=== PATIENT | male | born 1975 | race Caucasian/White ===

== ENCOUNTER 2019-05-23 11:43 | Inpatient (IN) ==
[2019-05-23] MEDS ORDERED: ONDANSETRON INJ 2 MG/ML 2 ML VIAL IV STA (12:46)
[2019-05-23] MEDS ORDERED: KETOROLAC TROMETHAMINE 15 MG/ML VIAL IV STA (12:46)
[2019-05-23] MEDS ORDERED: MoRPHine SULFATE 4 MG/ML 1 ML CARP\\VIAL IV STA (12:46)
[2019-05-23] MEDS ORDERED: SODIUM CHLORIDE 0.9% 500 ML IV SCH (13:00)
[2019-05-23 13:02] LABS: Basophils # (auto) 0.04 K/uL (0-0.2); Basophils % (auto) 0.4 %; Eosinophils # (auto) 0.23 K/uL (0-0.5); Eosinophils % (auto) 2.4 %; Hematocrit (blood only) 46.5 % (42-52); Hemoglobin 16.1 g/dL (14.0-18.0); Immature Granulocytes # (auto) 0.03 K/uL (0.00-0.02); Immature Granulocytes % (auto) 0.3 %; Lymphocytes # (auto) 1.68 K/uL (1.2-3.4); Lymphocytes % (auto) 17.6 %; Mean Corpuscular Hemoglobin 28.8 pg (25-34); Mean Corpuscular Hgb Conc 34.6 g/dL (32-36); Monocytes # (auto) 0.67 K/uL (0.11-0.59); Neutrophils # (auto) 6.91 K/uL (1.4-6.5); Neutrophils % (auto) 72.3 %; Platelet Count 318 K/uL (130-400); RDW Standard Deviation 39.3 fL (36.4-46.3); White Blood Count 9.56 K/uL (4.8-10.8)
--- NOTE | 2019-05-23 13:02 | XRay Report ---
XR chest 1V portable CLINICAL HISTORY: left chest pain pain COMPARISON STUDY: No previous studies for comparison. FINDINGS: The bones soft tissues and hemidiaphragms are normal. The cardiomediastinal silhouette is n ormal. The lungs are clear. The pulmonary vasculature is normal. IMPRESSION: Negative chest. The above report was generated using voice recognition software. It may contain grammatical, syntax or spelling errors. Electronically signed by: Mateusz Phillips M.D. 05/23/2019 1:00 PM
[2019-05-23 13:09] LABS: Albumin Level 4.2 gm/dl (3.4-5.0); BUN Creatinine Ratio 10.8 (10-20); Calcium 9.9 mg/dl (8.5-10.1); Est GFR (African American) 63.7; Potassium 3.8 mmol/L (3.5-5.1)
[2019-05-23] MEDS ORDERED: HYDROmorphone INJ 0.5 MG/0.5 ML SYR IV STA (13:10)
[2019-05-23 13:12] LABS: Albumin Globulin Ratio 1.2 (0.9-2); Bilirubin,Total 0.8 mg/dl (0.2-1); Globulin 3.4 gm/dl (2.5-4.0); Total Protein 7.6 gm/dl (6.4-8.2)
--- NOTE | 2019-05-23 13:25 | CT Scan Report ---
CT SCAN OF THE ABDOMEN AND PELVIS WITHOUT CONTRAST CLINICAL HISTORY: left sided pain COMPARISON STUDY: No previous studies for comparison. TECHNIQUE: CT scan of the abdomen and pelvis was performed from the lung bases to the proximal femurs . Images are reviewed in the axial, sagittal, and coronal planes. IV contrast was not administered fo r this examination. A dose lowering technique was utilized adhering to the principles of ALARA. CT DOSE: 589.85 mGycm FINDINGS: Lower chest: There is a 2.5 mm subpleural solid pulmonary nodule within the lingula. This is of doubt ful acute clinical significance. There are no pleural effusions. Liver: The unenhanced liver is normal in size, contour, and attenuation. There is no intrahepatic lyly iary ductal dilatation. Gallbladder: Unremarkable. Spleen: Normal in size and attenuation. Pancreas: Unremarkable. Adrenal glands: Unremarkable. Kidneys: There are 2 tangential lower pole right renal calculi measuring 9 mm in aggregate. There are 3 left renal calculi, the largest of which measures 5 mm. There is left-sided hydronephrosis and hyd roureter. There is an obstructing 5.5 mm proximal left ureteral calculus at the superior L3 level. No right ureteral or bladder calculi are visualized. Bowel: There are no transition zones indicate bowel obstruction. There is no evidence of acute append icitis. There is no evidence of acute diverticulitis. Peritoneum: There is no intraperitoneal free air or abdominal ascites. Vasculature: The abdominal aorta is normal in course and caliber. Adenopathy: There are prominent right ileocolic lymph nodes, statistically reactive. Pelvic viscera: The bladder, and pelvic viscera are unremarkable. Skeletal structures: No destructive osseous lesions are seen. IMPRESSION: 1. Bilateral nephrolithiasis 2. Obstructing 5.5 mm proximal left ureteral calculus the superior L3 level 3. No evidence of bowel obstruction. No evidence of free air 4. Prominent right ileocolic lymph nodes statistically reactive Electronically signed by: Damien Pradhan M.D. 05/23/2019 1:24 PM
[2019-05-23] MEDS ORDERED: TAMSULOSIN HCL 0.4 MG CAP PO ONE (13:33)
--- NOTE | 2019-05-23 14:17 | History & Physical Report ---
Date of Service May 23, 2019 Assessment & Plan (1) Renal colic: (2) Hydronephrosis: Pt is 43 y/o M without significant past medical history presented with sudden onset constant pain to left flank and left lower quadrant. Nausea and vomiting today. Denies fever/chills In ER pt afebrile, P: 85, R:24, BP: 179/105, 99% on RA. No leukocytosis. BUN: 16, Cr: 1.5, GFR: 55 CT ABD/PELVIS: Left-sided hydronephrosis and hydroureter. There is an obstructing 5.5 mm proximal left ureteral calculus -In ER given 1L NSS, Morphine 4mg, Dilaudid 0.5mg, Toradol 15mg, Zofran 4mg -UA pending -Urine culture -Strain urine -Flomax -IVF -Zofran prn nausea -Morphine, oxycodone prn pain -Urology consult -CBC, BMP in am (3) Renal insufficiency: BUN: 16, Cr: 1.5, GFR: 55 Unsure of pt's baseline. May be secondary to obstructing stone -Monitor renal functions -Will avoid further NSAIDs at this time and avoid other nephrotoxic agents when possible (4) Elevated blood pressure reading: In ER BP: 179/105, 152/105 No history diagnosed HTN in past. Pt does not follow with PCP BP may be elevated secondary to pain -Monitor BP -May need to consider adding BP agent DVT Prophylaxis -Low risk, Ambulate Pt does not follow with PCP for routine care. Pt from [place]. Pt was seen and care coordinated with Dr Fischer. See addendum History of Present Illness Chief Complaint: Left abdominal pain Primary Care Provider: NO PCP Pt is 43 y/o M without significant past medical history presented to ER for Left abdominal pain started today. Describes pain as sudden onset constant pain to left flank and left lower quadrant. Nausea and vomiting x 6 episodes today. No prior treatment. Pt states approx 5 days ago had slight twinge of pain to left abdomen that resolved. Denies history kidney stones, denies abdominal surgical history. Is from [place] and is travelling through area to go to [place]. Denies fever/chills, diaphoresis, hematemesis, diarrhea, constipation, melena, hematochezia, RAMACHANDRAN, dizziness, syncope, vision changes, neck pain, CP, SOB, orthopnea, palpitations, cough, sore throat, choking, otalgia, rhinorrhea, paresthesias, weakness, extremity weakness, extremity edema, rashes, dysuria, hematuria, urinary frequency, urinary retention. Allergies Allergy/AdvReac Type Severity Reaction Status Date / Time [place] nut Allergy Severe Anaphylaxis Unverified 05/23/19 13:50 macadamia nut oil Allergy Severe Anaphylaxis Unverified 05/23/19 13:50 Home Medications Home Medications Medication Instructions Recorded Confirmed Type No Known Home Medications 05/23/19 05/23/19 History Past Med/Surg History Medical History No pertinent past medical history Surgical History No pertinent past surgical history Family History Father Coronary heart disease Social History Preferred Language: [place]an Communication Ability: Effective Corporate Paralegal Required: No Beliefs That Will Affect Care: None Current Living Situation: Significant Other Other Information That Helps Us Care for You: No Feels Safe at Home: Yes Safety Concerns: Feels Safe At This Time Smoking Status: Never smoker Hx Alcohol Use: Yes Alcohol Intake Frequency: Holidays/Special Occasions Hx Substance Use: No Review of Systems Review of Systems: All systems reviewed & are unremarkable except as noted in HPI & below Physical Exam Physical Exam: General: + distress secondary to flank pain, WDWN Head: normocephalic, atraumatic Eyes: PERRL, EOM's intact, conjunctiva non-injected, anicteric ENT: normal inspection external ears, nose, mucous membranes moist Neck: supple, trachea midline Lungs: clear, no respiratory distress, no wheezing/rhonchi/rales CV: RRR, no murmur, no pretibial edema Abd: normal BS, soft, non-tender to palpation at this time, No CVA tenderness to percussion Ext: no cyanosis, no calf tenderness Neuro: A&O x 3, no focal deficits noted, anxious Skin: warm, dry Results & Data Vital Signs (Past 12 Hours) Vital Signs Temp Pulse Pulse Resp BP BP Pulse Ox 05/23/19 14:11 83 20 152/105 H 98 05/23/19 13:01 98 05/23/19 11:48 36.8 C 85 24 179/105 H 99 Laboratory Results Short CBC 05/23/19 05/23/19 Range/Units 12:05 12:05 WBC 9.56 (4.8-10.8) K/uL Hgb 16.1 (14.0-18.0) g/dL Hct 46.5 (42-52) % Plt Count 318 (130-400) K/uL Creatinine 1.51 H (0.6-1.4) mg/dl BMP 05/23/19 12:05 Sodium 140 Potassium 3.8 Chloride 108 H Carbon Dioxide 24 BUN 16 Creatinine 1.51 H Glucose 120 H Calcium 9.9 Liver Function 05/23/19 Range/Units 12:05 Total Bilirubin 0.8 (0.2-1) mg/dl AST 28 (15-37) U/L ALT 45 (12-78) U/L Alkaline Phosphatase 80 (45-117) U/L Albumin 4.2 (3.4-5.0) gm/dl Diagnostic Findings CT ABD/PELVIS: IMPRESSION: 1. Bilateral nephrolithiasis 2. Obstructing 5.5 mm proximal left ureteral calculus the superior L3 level 3. No evidence of bowel obstruction. No evidence of free air 4. Prominent right ileocolic lymph nodes statistically reactive CXR: IMPRESSION: Negative chest. Supervising Physician Co-Signing Physician Notes I have seen and examined the patient with physician broker assistant and would like to comment that This is a 43 year old Male traveling from [place] to [place] with abdominal pain, primarily of left side, for 6 days and found to have Bilateral nephrolithiasis with Obstructing 5.5 mm proximal left ureteral calculus the superior L3 level with left-sided hydronephrosis and hydroureter. Likely patient has been having obstructing kidney stones for multiple days from renal colic given recurrent pain no reported history of hypertension and elevated blood pressures likely because of pain monitor creatine, may be renal insufficiency from chronic kidney disease versus acute kidney injury Will give IV fluids and tamsulosin and prn pain medications and prn anti-emetics obtain urology consult of note, patient's family member () who patient has been traveling with on this road trip is in wheelchair and and has disability and difficulties with commode transfers. 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 Heart: regular rate and rhythm Abdomen: no acute pain on palpation, positive bowel sounds, soft Back: no costovertebral tenderness Extremities: no edema My colleague Dr. Christine will be following the patient as hospitalist starting on 05/24/19 (1) Hydronephrosis Hydronephrosis type: unspecified Qualified Code(s): N13.30 - Unspecified hydronephrosis
[2019-05-23 14:34] LABS: Appearance Urine Clear (Clear); Bacteria Urine Automated Negative (Negative); Bilirubin Urine Negative (Negative); Blood Urine 2+ (Negative); Color Urine Dark Yellow; Glucose Urine UA Negative (Negative); Ketones Urine Trace (Negative); Leukocyte Esterase Urine Negative (Negative); Nitrite Urine Negative (Negative); Protein Urine Trace (Negative); Specific Gravity Urine 1.023 (1.000-1.030); Urobilinogen Urine Negative (Negative)
[2019-05-23] MEDS ORDERED: KETOROLAC TROMETHAMINE 15 MG/ML VIAL IV PRN (15:55)
[2019-05-23] MEDS ORDERED: POLYETHYLENE (MIRALAX) 17 GM PACK PO PRN (15:55)
[2019-05-23] MEDS ORDERED: OXYCODONE HCL IR 5 MG TAB (IMMEDIATE RELEASE) PO PRN (15:55)
[2019-05-23] MEDS ORDERED: MoRPHine SULFATE 4 MG/ML 1 ML CARP\\VIAL IV PRN (15:55)
[2019-05-23] MEDS ORDERED: ACETAMINOPHEN 325 MG TAB PO PRN (15:55)
[2019-05-23] MEDS ORDERED: ONDANSETRON INJ 2 MG/ML 2 ML VIAL IV PRN (15:55)
[2019-05-23] MEDS: SODIUM CHLORIDE 0.9% 1000ML 1,000 ML IV SCH ×2 (16:04→23:51)
--- NOTE | 2019-05-23 16:22 | XRay Report ---
XR KUB/Abdomen 1 view CLINICAL HISTORY: left ureteral stone visibility COMPARISON STUDY: CT abdomen and pelvis same date FINDINGS: Bilateral nephrocalcinosis unchanged in the prior CT study. 5 mm mid left ureteral calculus at approximately L3 level. This is unchanged. Several pelvic vascular calcifications. IMPRESSION: 1. Unchanged 5 mm proximal to mid left ureteral calculus. 2. Unchanged bilateral nephrocalcinosis. The above report was generated using voice recognition software. It may contain grammatical, syntax or spelling errors. Electronically signed by: Mateusz Phillips M.D. 05/23/2019 4:20 PM
[2019-05-23 16:29] LABS: Partial Thromboplastin Ratio 0.8; Partial Thromboplastin Time 21.8 Seconds (21.0-31.0); Prothrombin Time 10.5 Seconds (9.0-12.0)
--- NOTE | 2019-05-23 18:11 | Emergency Department Note ---
Entered by Bassem White acting as a scribe for History of Present Illness General Chief complaint: Abdominal Pain Stated complaint: STOMACH PAIN Time Seen by Provider: 05/23/19 12:42 Source: patient History of Present Illness Provider complaint: abdominal pain Onset (ago): hour(s) 2 Location: abdomen and left Radiation: non-radiation Pain Consistency: + constant Maximum Pain Intensity: 10 Associated symptoms: + denies other symptoms and + nausea/vomiting The patient is a 43 y/o male who presents to the emergency department for evaluation of constant abdominal pain in the left lower quadrant that began two hours ago. The patient states that it started two hours ago very suddenly but notes that he had a similar episode a week ago that resolved itself. The notes that they were at a hotel eating breakfast when the pain began. He reports he is vomiting as well. The patient denies groin pain and testicular pain, di arrhea, and any other symptoms. Home Medications Home Medications Medication Instructions Recorded Confirmed Type ondansetron HCl [Zofran] 4 mg PO Q6H PRN #10 tab 05/24/19 Rx oxycodone 5 mg PO Q6H PRN #10 tab 05/24/19 Rx tamsulosin 0.4 mg PO HS #30 cap 05/24/19 Rx Allergies Allergy/AdvReac Type Severity Reaction Status Date / Time [place] nut Allergy Severe Anaphylaxis Unverified 05/23/19 13:50 macadamia nut oil Allergy Severe Anaphylaxis Unverified 05/23/19 13:50 Past Med/Surg History Medical History No pertinent past medical history Surgical History No pertinent past surgical history Family History Father Coronary heart disease Social History Preferred Language: Israeli Communication Ability: Effective Stunt Driver Required: No Beliefs That Will Affect Care: None Current Living Situation: Significant Other Other Information That Helps Us Care for You: No Feels Safe at Home: Yes Safety Concerns: Feels Safe At This Time Smoking Status: Never smoker Hx Alcohol Use: Yes Alcohol Intake Frequency: Holidays/Special Occasions Hx Substance Use: No Review of Systems See HPI for pertinent positives & negatives. and A total of 10 systems reviewed and were otherwise negative Physical Exam Vital Signs Vital Signs - 24 hr 05/23/19 14:11 Pulse Rate [Apical] 83 Respiratory Rate 20 Blood Pressure [Right Arm] 152/105 H Blood Pressure Mean [Right Arm] 120 Pulse Oximetry 98 GENERAL: Patient is in significant distress from pain. HEENT: No acute trauma, normocephalic atraumatic, mucous membranes moist, no nasal congestion, no scleral icterus. NECK: No stridor, no adenopathy, no meningismus, trachea is midline. LUNGS: Clear to auscultation bilaterally, no wheeze, no rhonchi, breath sounds equal. HEART: Without murmurs gallops or rubs, regular rate and rhythm. ABDOMEN: Soft, moderately tender along the whole left side, bowel sounds positive, no hernias, no peritonitis. BACK: no flank discomfort to percussion. EXTREMITIES: No cyanosis or edema, full range of motion of all the joints without pain or difficulty, no signs for acute trauma. NEUROLOGIC: Oriented x 3, no acute motor or sensory deficits, no focal weakness. SKIN: No rash, no jaundice, no diaphoresis. Course 1244: Past medical records reviewed. The patient was evaluated in room C04. A complete history and physical exam was performed. 1332: I updated the patient on his results and discussed the treatment plan. 1342: I spoke with Viridiana Cordoba. She will evaluate for further management. Administered Medications Discontinued Medications Hydromorphone HCl (Dilaudid) 0.5 mg IV NOW [facility] Stop: 05/23/19 13:11 Last Admin: 05/23/19 13:21 Dose: 0.5 mg Documented by: [id number] Sodium Chloride (Nss) 500 mls @ 999 mls/hr IV .Q31M [facility] Stop: 05/23/19 13:30 Last Infusion: 05/23/19 14:12 Dose: 0 mls/hr Documented by: [id number] Admin: 05/23/19 12:52 Dose: 999 mls/hr Documented by: [id number] Sodium Chloride (Nss 1000ml) 1,000 mls @ 150 mls/hr IV .Q6H40M [facility] Stop: 05/24/19 14:00 Last Infusion: 05/24/19 08:20 Dose: 150 mls/hr Documented by: [id number] Admin: 05/24/19 07:25 Dose: 125 mls/hr Documented by: [id number] Infusion: 05/24/19 07:25 Dose: 125 mls/hr Documented by: [id number] Admin: 05/23/19 23:51 Dose: 125 mls/hr Documented by: [id number] Infusion: 05/23/19 23:51 Dose: 125 mls/hr Documented by: [id number] Admin: 05/23/19 16:04 Dose: 125 mls/hr Documented by: [id number] Ketorolac Tromethamine (Toradol) 15 mg IV NOW STA Stop: 05/23/19 12:47 Last Admin: 05/23/19 12:52 Dose: 15 mg Documented by: [id number] Morphine Sulfate (Morphine Sulfate) 4 mg IV NOW STA Stop: 05/23/19 12:47 Last Admin: 05/23/19 12:52 Dose: 4 mg Documented by: [id number] Ondansetron HCl (Zofran) 4 mg IV NOW STA Stop: 05/23/19 12:47 Last Admin: 05/23/19 12:52 Dose: 4 mg Documented by: [id number] Tamsulosin HCl (Flomax) 0.4 mg PO NOW ONE Stop: 05/23/19 13:34 Last Admin: 05/23/19 14:05 Dose: 0.4 mg Documented by: [id number] Tamsulosin HCl (Flomax) 0.4 mg PO HS [facility] Stop: 06/22/19 20:59 Last Admin: 05/23/19 20:06 Dose: 0.4 mg Documented by: [id number] Medical Decision Making Differential Diagnosis Differential diagnosis: renal colic, bowel obstruction, bowel rupture, hernia, pancreatitis, diverticulitis, UTI, dehydration, renal failure. Medical Records Attestation: I reviewed the patient's medical records. Home Medications Current Medication List: was personally reviewed by me Laboratory Data Attestation: I reviewed the patient's lab results. Result diagrams: 05/24/19 04:57 05/24/19 04:57 Lab Results 05/23/19 05/23/19 05/23/19 Range/Units 12:05 12:05 12:05 WBC 9.56 (4.8-10.8) K/uL RBC 5.60 (4.7-6.1) M/uL Hgb 16.1 (14.0-18.0) g/dL Hct 46.5 (42-52) % MCV 83.0 (80-100) fL MCH 28.8 (25-34) pg MCHC 34.6 (32-36) g/dL RDW Std Deviation 39.3 (36.4-46.3) fL RDW Coeff of Samantha 13.0 (11.5-14.5) % Plt Count 318 (130-400) K/uL MPV 10.0 (7.4-10.4) fL Immature Gran % (Auto) 0.3 % Neut % (Auto) 72.3 % Lymph % (Auto) 17.6 % [place] % (Auto) 7.0 % Eos % (Auto) 2.4 % Baso % (Auto) 0.4 % Immature Gran # (Auto) 0.03 H (0.00-0.02) K/uL Neut # (Auto) 6.91 H (1.4-6.5) K/uL Lymph # (Auto) 1.68 (1.2-3.4) K/uL [place] # (Auto) 0.67 H (0.11-0.59) K/uL Eos # (Auto) 0.23 (0-0.5) K/uL Baso # (Auto) 0.04 (0-0.2) K/uL PT 10.5 (9.0-12.0) Seconds INR 1.0 (0.9-1.1) APTT 21.8 (21.0-31.0) Seconds PTT Ratio 0.8 Sodium 140 (136-145) mmol/L Potassium 3.8 (3.5-5.1) mmol/L Chloride 108 H (98-107) mmol/L Carbon Dioxide 24 (21-32) mmol/L Anion Gap 8.0 (3-11) BUN 16 (7-18) mg/dl Creatinine 1.51 H (0.6-1.4) mg/dl Est Cr Clr Drug Dosing 67.0 ml/min Est GFR ( Amer) 63.7 Est GFR (Non-Af Amer) 55.0 BUN/Creatinine Ratio 10.8 (10-20) Glucose 120 H (70-99) mg/dl Calcium 9.9 (8.5-10.1) mg/dl Total Bilirubin 0.8 (0.2-1) mg/dl AST 28 (15-37) U/L ALT 45 (12-78) U/L Alkaline Phosphatase 80 (45-117) U/L Total Protein 7.6 (6.4-8.2) gm/dl Albumin 4.2 (3.4-5.0) gm/dl Globulin 3.4 (2.5-4.0) gm/dl Albumin/Globulin Ratio 1.2 (0.9-2) Lipase 121 (73-393) U/L Urine Color Urine Appearance (Clear) Urine pH (4.5-7.5) Ur Specific [place] (1.000-1.030) Urine Protein (Negative) Urine Glucose (UA) (Negative) Urine Ketones (Negative) Urine Blood (Negative) Urine Nitrite (Negative) Urine Bilirubin (Negative) Urine Urobilinogen (Negative) Ur Leukocyte Esterase (Negative) Urine WBC (Auto) (0-5) /hpf Urine RBC (Auto) (0-4) /hpf U Hyaline Cast (Auto) (0-5) /lpf U Epithel Cells (Auto) (0-5) /lpf Urine Bacteria (Auto) (Negative) 05/23/19 Range/Units 13:45 WBC (4.8-10.8) K/uL RBC (4.7-6.1) M/uL Hgb (14.0-18.0) g/dL Hct (42-52) % MCV (80-100) fL MCH (25-34) pg MCHC (32-36) g/dL RDW Std Deviation (36.4-46.3) fL RDW Coeff of Samantha (11.5-14.5) % Plt Count (130-400) K/uL MPV (7.4-10.4) fL Immature Gran % (Auto) % Neut % (Auto) % Lymph % (Auto) % [place] % (Auto) % Eos % (Auto) % Baso % (Auto) % Immature Gran # (Auto) (0.00-0.02) K/uL Neut # (Auto) (1.4-6.5) K/uL Lymph # (Auto) (1.2-3.4) K/uL [place] # (Auto) (0.11-0.59) K/uL Eos # (Auto) (0-0.5) K/uL Baso # (Auto) (0-0.2) K/uL PT (9.0-12.0) Seconds INR (0.9-1.1) APTT (21.0-31.0) Seconds PTT Ratio Sodium (136-145) mmol/L Potassium (3.5-5.1) mmol/L Chloride (98-107) mmol/L Carbon Dioxide (21-32) mmol/L Anion Gap (3-11) BUN (7-18) mg/dl Creatinine (0.6-1.4) mg/dl Est Cr Clr Drug Dosing ml/min Est GFR ( Amer) Est GFR (Non-Af Amer) BUN/Creatinine Ratio (10-20) Glucose (70-99) mg/dl Calcium (8.5-10.1) mg/dl Total Bilirubin (0.2-1) mg/dl AST (15-37) U/L ALT (12-78) U/L Alkaline Phosphatase (45-117) U/L Total Protein (6.4-8.2) gm/dl Albumin (3.4-5.0) gm/dl Globulin (2.5-4.0) gm/dl Albumin/Globulin Ratio (0.9-2) Lipase (73-393) U/L Urine Color Dark Yellow Urine Appearance Clear (Clear) Urine pH 6.0 (4.5-7.5) Ur Specific [place] 1.023 (1.000-1.030) Urine Protein Trace H (Negative) Urine Glucose (UA) Negative (Negative) Urine Ketones Trace H (Negative) Urine Blood 2+ H (Negative) Urine Nitrite Negative (Negative) Urine Bilirubin Negative (Negative) Urine Urobilinogen Negative (Negative) Ur Leukocyte Esterase Negative (Negative) Urine WBC (Auto) 1-5 (0-5) /hpf Urine RBC (Auto) 10-30 H (0-4) /hpf U Hyaline Cast (Auto) 1-5 (0-5) /lpf U Epithel Cells (Auto) 10-20 H (0-5) /lpf Urine Bacteria (Auto) Negative (Negative) Imaging Data Radiologist's Impression: Radiology results as stated below per my review and the radiologist's interpretation: CT SCAN OF THE ABDOMEN AND PELVIS WITHOUT CONTRAST CLINICAL HISTORY: left sided pain COMPARISON STUDY: No previous studies for comparison. TECHNIQUE: CT scan of the abdomen and pelvis was performed from the lung bases to the proximal femurs. Images are reviewed in the axial, sagittal, and coronal planes. IV contrast was not administered for this examination. A dose lowering technique was utilized adhering to the principles of ALARA. CT DOSE: 589.85 mGycm FINDINGS: Lower chest: There is a 2.5 mm subpleural solid pulmonary nodule within the lingula. This is of doubtful acute clinical significance. There are no pleural effusions. Liver: The unenhanced liver is normal in size, contour, and attenuation. There is no intrahepatic biliary ductal dilatation. Gallbladder: Unremarkable. Spleen: Normal in size and attenuation. Pancreas: Unremarkable. Adrenal glands: Unremarkable. Kidneys: There are 2 tangential lower pole right renal calculi measuring 9 mm in aggregate. There are 3 left renal calculi, the largest of which measures 5 mm. There is left-sided hydronephrosis and hydroureter. There is an obstructing 5.5 mm proximal left ureteral calculus at the superior L3 level. No right ureteral or bladder calculi are visualized. Bowel: There are no transition zones indicate bowel obstruction. There is no evidence of acute appendicitis. There is no evidence of acute diverticulitis. Peritoneum: There is no intraperitoneal free air or abdominal ascites. Vasculature: The abdominal aorta is normal in course and caliber. Adenopathy: There are prominent right ileocolic lymph nodes, statistically reactive. Pelvic viscera: The bladder, and pelvic viscera are unremarkable. Skeletal structures: No destructive osseous lesions are seen. IMPRESSION: 1. Bilateral nephrolithiasis 2. Obstructing 5.5 mm proximal left ureteral calculus the superior L3 level 3. No evidence of bowel obstruction. No evidence of free air 4. Prominent right ileocolic lymph nodes statistically reactive Electronically signed by: Damien Pradhan M.D. 05/23/2019 1:24 PM XR chest 1V portable CLINICAL HISTORY: left chest pain pain COMPARISON STUDY: No previous studies for comparison. FINDINGS: The bones soft tissues and hemidiaphragms are normal. The cardiomediastinal silhouette is normal. The lungs are clear. The pulmonary vasculature is normal. IMPRESSION: Negative chest. The above report was generated using voice recognition software. It may contain grammatical, syntax or spelling errors. Electronically signed by: Mateusz Phillips M.D. 05/23/2019 1:00 PM Blood Pressure Blood Pressure Findings: Elevated blood pressure Blood Pressure Disposition: further management by hospitalist BERNADETTE Narrative There is no leukocytosis or concerning anemia. No coagulopathy. Creatinine was elevated at 1.51, no significant electrolyte abnormality. No liver enzyme elevation. Lipase was normal. Urinalysis shows some blood, no evidence for infection. Abdominal and pelvis CT does show a fairly large left-sided proximal ureteral stone with resultant hydronephrosis. Chest film did not show free air or pneumonia. On exam, the patient was quite uncomfortable. He was not nauseated and vomiting. He could not sit still. Patient received IV saline. Was given IV morphine for pain, IV Zofran for nausea, he received IV Toradol. He was given IV Dilaudid for additional pain control. Patient was given a dose of oral Flomax. The patient is feeling better since being medicated. He is from out of town, he has a fairly large stone that is quite proximal. He was in a lot of pain on presentation and I think pain control will be difficult for him as an outpatient. A hospital stay was felt warranted. The patient may require urologic intervention. I did speak to the patient and case management. The on-call hospitalist was consulted. Impression & Plan Renal colic, Hydronephrosis, Vomiting Discharge Plan Visit Data *Final* Discharge Date/Time: 05/23/19 15:15 Chief Complaint: Abdominal Pain Stated Complaint: STOMACH PAIN ED Provider: Kameron Quiroz Discharge Problem: Renal colic, Hydronephrosis, Vomiting Patient Disposition: Admitted As Inpatient Condition: Good Discharge Instructions Interventions: ED Discharge Assessment Last Done: 05/23/19 15:15 Discharge Problem: Hydronephrosis Qualifiers: Hydronephrosis type: unspecified Qualified Code(s): N13.30 - Unspecified hydronephrosis Vomiting Qualifiers: Vomiting type: unspecified Vomiting Intractability: non-intractable Nausea presence: unspecified Qualified Code(s): R11.10 - Vomiting, unspecified The scribe's documentation has been prepared under my direction and personally reviewed by me in its entirety. I confirm that the note above accurately reflects all work, treatment, procedures, and medical decision making performed by me.
[2019-05-23] MEDS ORDERED: TAMSULOSIN HCL 0.4 MG CAP PO SCH (21:00)
[2019-05-24 05:33] LABS: Mean Corpuscular Hemoglobin 28.2 pg (25-34); Mean Corpuscular Hgb Conc 33.3 g/dL (32-36); Mean Corpuscular Volume 84.5 fL (80-100); Mean Platelet Volume 9.6 fL (7.4-10.4); Platelet Count 271 K/uL (130-400); RDW Coefficient of Variation 13.4 % (11.5-14.5); RDW Standard Deviation 40.6 fL (36.4-46.3); Red Blood Count 4.97 M/uL (4.7-6.1); White Blood Count 8.13 K/uL (4.8-10.8)
[2019-05-24 06:16] LABS: BUN Creatinine Ratio 10.1 (10-20); Calcium 8.5 mg/dl (8.5-10.1); Est GFR (African American) 80.1; Est GFR (Non-African American) 69.1; Potassium 3.8 mmol/L (3.5-5.1)
[2019-05-24] MEDS: SODIUM CHLORIDE 0.9% 1000ML 1,000 ML IV SCH (07:25)
--- NOTE | 2019-05-24 08:30 | XRay Report ---
XR KUB/Abdomen 1 view CLINICAL HISTORY: left ureteral stone progression COMPARISON STUDY: 05/23/2019 FINDINGS: There is no pathologic bowel dilatation. There are multiple bilateral renal calculi. There is a 6 mm calcification projected over the left L3 transverse process consistent with a proximal left ureteral calculus. IMPRESSION: 1. Bilateral nephrolithiasis 2. 6 mm proximal left ureteral calculus at the L3 level. Electronically signed by: Damien Pradhan M.D. 05/24/2019 8:29 AM
--- NOTE | 2019-05-24 08:46 | Urology Consultation ---
Date of Consultation May 24, 2019 Assessment & Plan (1) Hydronephrosis: 43yo M with 5.5mm Proximal left ureteral stone, moderate hydronephrosis. Stone easily visible on KUB, does show slight progression from last night to today. Discussed options at length with patient. Discussed observation with max medical therapy, vs potential ESWL on wednesday vs ureteroscopy. Pt is doing well presently, pain controlled. Due to logistics, with him traveling and has coworker with him to drive. He feels comfortable discharging with pain control and flomax. He understands this stone is passable, however he needs to establish with Urology group back home for management and monitoring. I reviewed ER criteria multiple times, He understands to report to nearest ER for fever, intractable pain or vomiting. Communication order placed to send pt with all images/reports. Primary service made aware of our decision and plan for discharge. Will allow for diet. Thank you for allowing us to participate in the acute care of Mr. Rosenbaum. Please reconsult us with additional questions, concerns or changes in patient status. History of Present Illness Reason for Consultation: stone Requesting Physician: Dr. Lucia Attending Physician: Yoly Lucia, History of Present Illness 43yo M admitted through [facility] ER for severe left flank pain. Diagnosed with 5.5mm prox left ureteral stone, with moderate hydronephrosis and bilateral renal calculi. No previous stone hx, otherwise healthy. He is from [place], traveling to [place] for work conference when acute pain presented. He is traveling with a coworker. Chart reviewed, Cr and WBC with normal limits. UA not suspicious for infection. VSS, afebrile. Pt doing well at this time. Pain has been controlled since ER. Denies n/v/f/c. Does acknowledge colicky left flank pain but manageable at this time. Allergies Allergy/AdvReac Type Severity Reaction Status Date / Time [place] nut Allergy Severe Anaphylaxis Unverified 05/23/19 13:50 macadamia nut oil Allergy Severe Anaphylaxis Unverified 05/23/19 13:50 Home Medications Home Medications Medication Instructions Recorded Confirmed Type ondansetron HCl [Zofran] 4 mg PO Q6H PRN #10 tab 05/24/19 Rx oxycodone 5 mg PO Q6H PRN #10 tab 05/24/19 Rx tamsulosin 0.4 mg PO HS #30 cap 05/24/19 Rx Patient History Medical History No pertinent past medical history Surgical History No pertinent past surgical history Family History Father Coronary heart disease Social History Preferred Language: Ethiopian Communication Ability: Effective Braille And Talking Books Clerk Required: No Beliefs That Will Affect Care: None Current Living Situation: Significant Other Other Information That Helps Us Care for You: No Feels Safe at Home: Yes Safety Concerns: Feels Safe At This Time Smoking Status: Never smoker Hx Alcohol Use: Yes Alcohol Intake Frequency: Holidays/Special Occasions Hx Substance Use: No Review of Systems Review of Systems: All systems reviewed & are unremarkable except as noted in HPI & below Physical Exam Constitutional: no acute distress and not ill appearing Eyes: no nystagmus ENMT: Ears: no hearing impairment Neck: trachea midline Respiratory: no respiratory distress and no cough Cardiovascular: Vessels: no JVD Chest (Breasts): Chest: normal inspection of chest Gastrointestinal (Abdomen): Inspection/Auscultation: abdomen not distended and no abdominal edema Percussion/Palpation: abdomen soft; abdomen nontender Musculoskeletal: Head/Neck/Chest: normocephalic and head atraumatic Skin: no rashes, warm and dry Neurologic: awake; not confused and not obtunded Psychiatric: Orientation: alert and oriented x 3 Eye Contact: good eye contact Affect: no depressed affect Genitourinary: bladder normal to inspection; no CVA tenderness left CVA tenderness Lymphatic: no lymphadenopathy and no lymphedema Results & Data Vital Signs (Past 12 Hours) Vital Signs Temp Pulse Resp BP Pulse Ox 05/24/19 06:45 36.7 C 66 16 117/66 96 05/23/19 23:23 37.0 C 90 16 121/78 98 PG Care Time/CCT Total # of Minutes Spent Total Time Spent with Patient: Total time spent is greater than 50% in coordination of care (as documented) at patient's floor/unit and/or counseling patient: (1) Hydronephrosis Hydronephrosis type: unspecified Qualified Code(s): N13.30 - Unspecified hydronephrosis
[2019-05-24] MEDS ORDERED: Nursing to Pharmacy Communication ONE (10:28)
--- NOTE | 2019-05-24 10:57 | Discharge Summary ---
Date of Service May 24, 2019 Admission HPI Per Admitting Provider Pt is 43 y/o M without significant past medical history presented to ER for Left abdominal pain started today. Describes pain as sudden onset constant pain to left flank and left lower quadrant. Nausea and vomiting x 6 episodes today. No prior treatment. Pt states approx 5 days ago had slight twinge of pain to left abdomen that resolved. Denies history kidney stones, denies abdominal surgical history. Is from [place] and is travelling through area to go to [place]. Denies fever/chills, diaphoresis, hematemesis, diarrhea, constipation, melena, hematochezia, RAMACHANDRAN, dizziness, syncope, vision changes, neck pain, CP, SOB, orthopnea, palpitations, cough, sore throat, choking, otalgia, rhinorrhea, paresthesias, weakness, extremity weakness, extremity edema, rashes, dysuria, hematuria, urinary frequency, urinary retention. Admission Exam Per Admitting Provider General: + distress secondary to flank pain, WDWN Head: normocephalic, atraumatic Eyes: PERRL, EOM's intact, conjunctiva non-injected, anicteric ENT: normal inspection external ears, nose, mucous membranes moist Neck: supple, trachea midline Lungs: clear, no respiratory distress, no wheezing/rhonchi/rales CV: RRR, no murmur, no pretibial edema Abd: normal BS, soft, non-tender to palpation at this time, No CVA tenderness to percussion Ext: no cyanosis, no calf tenderness Neuro: A&O x 3, no focal deficits noted, anxious Skin: warm, dry Principal Diagnosis L ureteral calculus Discharge Exam CONSTITUTIONAL: WNWD, vitals as above, generally well-appearing EYES: normal conjunctivae, no scleral icterus ENT: MMM RESPIRATORY: clear to auscultation bilaterally, no crackles, rales or wheezes, normal respiratory effort CARDIOVASCULAR: regular rate and rhythm, S1 and 2 heard without murmurs, gallops or rubs, no JVD, no peripheral edema GASTROINTESTINAL: soft, nontender, nondistended MUSCULOSKELETAL: strength 5/5 throughout, head is normocephalic and atraumatic SKIN: warm and dry NEUROLOGIC: CN 2-12 grossly intact, no gross focal deficits. Ambulatory PSYCHIATRIC: alert cooperative and oriented to person, place and time. Discharge Data Allergies Allergy/AdvReac Type Severity Reaction Status Date / Time [place] nut Allergy Severe Anaphylaxis Unverified 05/23/19 13:50 macadamia nut oil Allergy Severe Anaphylaxis Unverified 05/23/19 13:50 Consultations 05/23/19 13:42 ED Decision to Admit Stat 05/23/19 15:55 Consult Urology Routine Ordered Studies 05/23/19 12:46 CT abd pelvis wo con Stat Hospital Course (1) Renal colic: (2) Hydronephrosis: (3) MALKA (acute kidney injury): 43-year-old man presented with a 5.5 mm proximal left ureteral stone moderate hydronephrosis that was seen on CT imaging. Labwork did not reflect leukocytosis and a mild MALKA was present which had resolved the following day after IV hydration. UA was negative for infection. Urology was consulted and they discussed observation with max medical therapy versus potential ESWL on Wednesday of this week versus ureteroscopy. After Dilaudid given in the ER the pain was resolved and did not recur per patient. He is currently traveling to a conference in [place] from [place] and wishes to proceed onto the conference as his pain is resolved. The KUB performed the morning of discharge revealed presence of persistent stone which had traveled more distal. Urology was comfortable with pursuing max medical therapy with observation and he was discharged in stable condition with tamsulosin, Percocet as needed and Zofran as needed. He does not have care set up with a primary care doctor in [place] but was encouraged to do this to discuss the 3 remaining kidney stones that are present. He may require a future referral to urology. At time of discharge he was mentating and ambulating at baseline and tolerating p.o. He was asymptomatic at time of discharge. Total Time Total Time Spent Total Time Spent (In Minutes): 60 Total Time Includes: Examination of the Patient, Discharge Planning, Medication Reconciliation and Communication With Other Providers Discharge Plan Discharge Items Patient Disposition: Home - Self-Care Reason For Visit: L URETERAL CALCULUS, L HYDRONEPHROSIS Discharge Diagnosis: L ureteral calculus with left hydronephrosis Condition on Discharge: Good Health Concerns: Stone may not have passed completely, watch for symptoms we discussed including severe pain, fevers, chills, blood in urine, or concerning changes in your urine. Establish care with a primary care provider when you get back home. May need Urology [id number] discuss with primary care physician first. Activity: Resume your previous activity Non-emergency contact: Primary Care Provider Call non-emergency contact if: you have any medication questions, your symptoms worsen, your pain is not controlled, your pain is worsening, your pain is unusual for you, your pain is concerning for you and you have a fever Follow-up/Referrals: PCP,NO [Primary Care Provider] - Diet: Regular Addtl Attending Provider Instructions: Stone may not have passed completely, watch for symptoms we discussed including severe pain, fevers, chills, blood in urine, or concerning changes in your urine. Establish care with a primary care provider when you get back home. May need Urology [id number] discuss with primary care physician first. Do not drive on narcotics. Please take tamsulosin every day until you are sure the stone has passed or pain is consistently gone. Use Ibuprofen or Tylenol for pain and oxycodone only as needed for severe breakthrough pain. It was a pleasure taking care of you! Please call if you have any questions or problems. You can reach a [facility] hospitalist on duty at [facility] 24 hours a day by calling [phone]. Take care of yourself. Yoly Lucia DO [facility] Hospitalist Pending Studies at Discharge: No Stand-Alone Forms: Call Back Authorization, [facility], Opioid Pain Management, Smoking Cessation Medications and DC Order Prescriptions: New tamsulosin 0.4 mg Capsule 0.4 mg PO HS Qty: 30 RF: 0 oxycodone 5 mg Tablet 5 mg PO Q6H PRN (Reason: severe pain) Qty: 10 RF: 0 ondansetron HCl [Zofran] 4 mg tablet 4 mg PO Q6H PRN (Reason: nausea and vomiting) Qty: 10 RF: 0 Discharge Orders: Discharge Order (Routine); Ordered 05/24/19 Ordered By: Yoly Lucia Admission Data Admit Date/Time: 05/23/19 14:12 Attending Provider: Yoly Lucia Admit Provider: Paul Fischer Primary Care Provider: PCP,NO Other Providers: Paul Fischer ; Eliel Dwyer Other Interventions: Discharge Summary Assessment (RN) Last Done: 05/24/19 11:58
== END 2019-05-24 13:16 | disposition home or self-care (01) | DRG 694 ==
LOC: ED 11:43 → 3W 14:12 → SUATTDRO 14:12 → 3W 15:15

== ENCOUNTER 2019-05-25 14:25 | Inpatient (IN) ==
[2019-05-25] MEDS ORDERED: SODIUM CHLORIDE 0.9% 1000ML 1,000 ML IV ONE (14:37)
[2019-05-25] MEDS ORDERED: KETOROLAC TROMETHAMINE 15 MG/ML VIAL IV STA (14:37)
[2019-05-25] MEDS ORDERED: HYDROmorphone INJ 1 MG/ML SYRINGE IV STA (14:37)
[2019-05-25] MEDS ORDERED: ONDANSETRON INJ 2 MG/ML 2 ML VIAL IV STA (14:37)
[2019-05-25 15:00] LABS: Hematocrit (blood only) 42.9 % (42-52); Mean Corpuscular Hemoglobin 29.1 pg (25-34); Mean Corpuscular Volume 83.1 fL (80-100); Mean Platelet Volume 9.3 fL (7.4-10.4); Platelet Count 305 K/uL (130-400); RDW Coefficient of Variation 13.1 % (11.5-14.5); RDW Standard Deviation 39.2 fL (36.4-46.3); Red Blood Count 5.16 M/uL (4.7-6.1); White Blood Count 12.66 K/uL (4.8-10.8)
[2019-05-25 15:25] LABS: BUN Creatinine Ratio 9.1 (10-20); Calcium 9.7 mg/dl (8.5-10.1); Creatinine Clr Calc Pharmacy 72.6 ml/min; Est GFR (African American) 69.2; Est GFR (Non-African American) 59.7; Potassium 3.7 mmol/L (3.5-5.1)
--- NOTE | 2019-05-25 15:31 | XRay Report ---
XR KUB/Abdomen 1 view CLINICAL HISTORY: 43 years-old Male presenting with stone, left. TECHNIQUE: Single supine view of the abdomen was obtained. COMPARISON: 05/24/[address] from 05/23/2019. FINDINGS: Nonobstructive bowel gas pattern. No gross pneumoperitoneum. Bilateral nephrolithiasis again noted. Redemonstration of the calculus along the course of the proxim al left ureter projecting just inferior to the left transverse process of L3, which is stable to mini nithin progressed since the prior exam. Calcifications in the pelvis may relate to phleboliths and/or prostatic calcifications. Osseous structures normal. Lung bases clear. IMPRESSION: 1. Stable to minimal interval progression of the proximal left ureteral calculus now just inferior t o the left transverse process of L3. 2. Bilateral nephrolithiasis. Electronically signed by: Gualberto Artis M.D. 05/25/2019 3:30 PM
--- NOTE | 2019-05-25 16:10 | History & Physical Report ---
Date of Service May 25, 2019 Assessment & Plan (1) Left ureteral calculus: (2) Hydronephrosis: (3) Renal colic: This is a 43-year-old male who has no significant past medical history who presents to [facility] secondary to continued left lower quadrant pain. Patient recently admitted to [facility] 05/23/2019 and discharged on 05/24/2019 secondary to obstructing 5.5 mm left ureteral nephrolithiasis. Failed outpt tx. In ED patient underwent KUB which revealed stable to interval progression of left ureteral calculus. He was hemodynamically stable and afebrile while in ED. He had mild elevation in his white blood cell count of 12.66k. BUN 13 and creatinine mildly elevated to 1.41, unknown baseline but yesterday at discharge was 1.25. In ED he received 15 mg IV Toradol as well as 1 mg IV Dilaudid with significant improvement in his symptoms. admit to med/surg NPO after midnight IVF 80cc/hr repeat bmp in a.m. obtain urinalysis strain all urine APAP/IV dilaudid prn for pain - avoid NSAIDS given mild elevation in Cr Urology consulted - pt to undergo outpatient ESWL in a.m. - to be discharged if stable by 8:30 to be at surgery center for 9AM Spoke with KATT[facility] urology (4) MALKA (acute kidney injury): Elevated Cr 1.41 unknown baseline cr at discharge yesterday 1.25 continue IVF repeat bmp in a.m. (5) DVT prophylaxis: SCD/TEDS ESWL to be performed tomorrow morning Disposition: admit to med/surg with discharge in a.m. for pt to undergo outpt ESWL Follow up: PCP in [place] upon discharge Pt was seen and examined in collaboration with Dr. Mckeon, please see addendum Starting 05/26/19 pt will be under the care of Dr. Muir History of Present Illness Chief Complaint: Failed outpt treatment for Kidney stone Primary Care Provider: NO PCP This is a 43-year-old male who has no significant past medical history who presents to [facility] secondary to continued left lower quadrant pain. Patient recently admitted to [facility] 05/23/2019 and discharged on 05/24/2019 secondary to obstructing 5.5 mm left ureteral nephrolithiasis. He was seen and evaluated by urology and felt spontaneous passage was likely. He is from [facility] and had been passing through on his way to [place] when his pain started. Due to being out of town he wished to be discharged secondary to pain being under control. He was prescribed Flomax 0.4 mg daily along with as needed narcotics. He was feeling well until today when he developed 8/10, sharp stabbing left lower quadrant abdominal pain, improved with movement, worse with rest. He represented back to ED secondary to continued pain requesting readmission. He denies any fever, chills, sweats, lightheadedness, dizziness, chest pain, shortness with, palpitations, cough, emesis, dysuria, increased urgency with urination, hematuria, diarrhea, melena, hematochezia. He has been pushing oral liquids and has been noticed increased urinary frequency but denies other urinary sx. Further complained on nausea on arrival due to pain. In ED patient underwent KUB which revealed stable to interval progression of left ureteral calculus. He was hemodynamically stable and afebrile while in ED. He had mild elevation in his white blood cell count of 12.66k. BUN 13 and creatinine mildly elevated to 1.41, unknown baseline but yesterday at discharge was 1.25. In ED he received 15 mg IV Toradol as well as 1 mg IV Dilaudid with significant improvement in his symptoms. Allergies Allergy/AdvReac Type Severity Reaction Status Date / Time [place] nut Allergy Severe Anaphylaxis Verified 05/26/19 09:09 macadamia nut oil Allergy Severe Anaphylaxis Verified 05/26/19 09:09 Home Medications Home Medications Medication Instructions Recorded Confirmed Type ondansetron HCl [Zofran] 4 mg PO Q6H PRN #10 tab 05/24/19 05/26/19 Rx oxycodone 5 mg PO Q6H PRN #10 tab 05/24/19 05/26/19 Rx tamsulosin 0.4 mg PO HS #30 cap 05/24/19 05/26/19 Rx Past Med/Surg History Medical History No pertinent past medical history Surgical History H/O wisdom tooth extraction Family History Father Coronary heart disease Social History Preferred Language: Moh[place] Communication Ability: Effective Measuring Clerk Required: No Beliefs That Will Affect Care: None Current Living Situation: Significant Other current occupational status: unemployed Other Information That Helps Us Care for You: No other: previously worked as computer programer Feels Safe at Home: Yes Safety Concerns: Feels Safe At This Time Smoking Status: Never smoker Do You Dip or Chew Tobacco: No ; Second Hand Exposure: No ; Tobacco Cessation Education Requested by Patient: No Hx Alcohol Use: No Hx Substance Use: No Review of Systems Review of Systems: All systems reviewed & are unremarkable except as noted in HPI & below Physical Exam Physical Exam: Constitutional: WD/WN, M, sitting in bedside chair and walking about room intermittently, vitals as above, NAD, sitting up in bed, pleasant, conversing easily Head: Normocephalic, Atraumatic Eyes: PERRL, conjunctivae normal, anicteric sclerae ENMT: external ear and nose normal, oropharynx normal Neck: trachea midline, no thyromegaly normal visual inspection Respiratory: normal respiratory effort, lungs clear to auscultation, no wheeze, rales, rhonchi. Normal insp/exp effort, no accessory muscle use Cardiovascular: RRR, no murmur, no edema Vessels: no JVD or carotid bruit Chest: normal inspection of chest Abdomen: normal bowel sounds, soft, nontender, no hepatosplenomegaly Musculoskeletal: no cyanosis or clubbing, extremities motor strength 5/5 Skin: no rashes, warm and dry normal turgor Neurologic: PERRL, EOMI, accommodation nl, no face palsy, no dysarthria CN's II-XI intact bilaterally and moves all extremities Psychiatric: A+Ox3, euthymic affect Lymphatic: no cervical or axillary lymphadenopathy : deferred Results & Data Vital Signs (Past 12 Hours) Vital Signs Temp Pulse Resp BP Pulse Ox 05/25/19 14:31 36.7 C 62 16 174/96 H 100 Laboratory Results Short CBC 05/25/19 Range/Units 14:44 WBC 12.66 H (4.8-10.8) K/uL Hgb 15.0 (14.0-18.0) g/dL Hct 42.9 (42-52) % Plt Count 305 (130-400) K/uL [facility] 05/25/19 14:44 Sodium 140 Potassium 3.7 Chloride 109 H Carbon Dioxide 23 BUN 13 Creatinine 1.41 H Glucose 102 H Calcium 9.7 Diagnostic Findings KUB Xray: FINDINGS: Nonobstructive bowel gas pattern. No gross pneumoperitoneum. Bilateral nephrolithiasis again noted. Redemonstration of the calculus along the course of the proximal left ureter projecting just inferior to the left transverse process of L3, which is stable to minimally progressed since the prior exam. Calcifications in the pelvis may relate to phleboliths and/or prostatic calcifications. Osseous structures normal. Lung bases clear. IMPRESSION: 1. Stable to minimal interval progression of the proximal left ureteral calculus now just inferior to the left transverse process of L3. 2. Bilateral nephrolithiasis. Abd/Pelvis CT scan from 05/23/19: FINDINGS: Lower chest: There is a 2.5 mm subpleural solid pulmonary nodule within the lingula. This is of doubtful acute clinical significance. There are no pleural effusions. Liver: The unenhanced liver is normal in size, contour, and attenuation. There is no intrahepatic biliary ductal dilatation. Gallbladder: Unremarkable. Spleen: Normal in size and attenuation. Pancreas: Unremarkable. Adrenal glands: Unremarkable. Kidneys: There are 2 tangential lower pole right renal calculi measuring 9 mm in aggregate. There are 3 left renal calculi, the largest of which measures 5 mm. There is left-sided hydronephrosis and hydroureter. There is an obstructing 5.5 mm proximal left ureteral calculus at the superior L3 level. No right ureteral or bladder calculi are visualized. Bowel: There are no transition zones indicate bowel obstruction. There is no evidence of acute appendicitis. There is no evidence of acute diverticulitis. Peritoneum: There is no intraperitoneal free air or abdominal ascites. Vasculature: The abdominal aorta is normal in course and caliber. Adenopathy: There are prominent right ileocolic lymph nodes, statistically reactive. Pelvic viscera: The bladder, and pelvic viscera are unremarkable. Skeletal structures: No destructive osseous lesions are seen. IMPRESSION: 1. Bilateral nephrolithiasis 2. Obstructing 5.5 mm proximal left ureteral calculus the superior L3 level 3. No evidence of bowel obstruction. No evidence of free air 4. Prominent right ileocolic lymph nodes statistically reactive Medications Administered Short CBC 05/25/19 Range/Units 14:44 WBC 12.66 H (4.8-10.8) K/uL Hgb 15.0 (14.0-18.0) g/dL Hct 42.9 (42-52) % Plt Count 305 (130-400) K/uL BMP 05/25/19 14:44 Sodium 140 Potassium 3.7 Chloride 109 H Carbon Dioxide 23 BUN 13 Creatinine 1.41 H Glucose 102 H Calcium 9.7 Code Status & VTE Plan Code Status Full Code VTE Prophylaxis Plan VTE Prophylaxis will be ordered: Yes Supervising Physician Co-Signing Physician Notes Attending Addendum: delayed entry date of service as noted above care coordinated with RUDY Mesa please refer to her notes for full details, I agree with her notes patient seen and examined, records reviewed by myself as well on exam, patient seen sitting up in bed, comfortable, not in distress states pain is well controlled no problems with voiding, no hematuria no other symptoms VS noted and reviewed oriented x3, not in distress, speaks in sentences with no effort nor accessory muscle use normal rate, regular rhythm, no murmurs clear breath sounds bilaterally non distended, soft, nontender no bipedal edema, erythema, warmth no neuro deficits WBC 12.6 Hg 15 Crea 1.4 ASSESSMENT AND PLAN LEFT URETERAL STONE analgesics, IV fluids Urology consulted- plan for ESWL tomorrow ACUTE KIDNEY INJURY likely from pre-renal etiology, obstructive uropathy IV fluids, monitor renal function other diagnoses and plan of care as per RUDY Bray's notes Vince Mckeon MD (1) Hydronephrosis Hydronephrosis type: unspecified Qualified Code(s): N13.30 - Unspecified hydronephrosis
--- NOTE | 2019-05-25 16:27 | Urology Consultation ---
Date of Consultation May 25, 2019 Assessment & Plan (1) Renal colic: (2) Failure of outpatient treatment: 43yo M with persistent left prox 5.5mm stone, failed outpatient treatment. Patient received Toradol 15mg IV prior to my assessment. Discussed case with Dr. Medina, pt is eligible for left ureteral ESWL tomorrow, however there is a bleeding risk with toradol onboard. Pt understands. Risk and benefits reviewed. Pt is very anxious about leaving hospital again given severity of pain. We discussed options, would feel most comfortable admitted for pain control, IV hydration overnight then discharged in AM for [facility]. Pt needs to be discharged by 8:30AM for planned arrival to [facility] at 9AM tomorrow. Will proceed with left ESWL as outpatient tomorrow. Pt will need to have low fat diet tonight for dinner, then clears only from 8pm to midnight, then NPO at midnight. Pt will also need to take fleets enema at 8pm. I reviewed all instructions with patient. Will discuss with hospital team. Discussed with nurse practitioner as well as ER doctor and agree with above plan We will continue to follow. History of Present Illness Reason for Consultation: stone Requesting Physician: Dr Quiroz History of Present Illness 43yo M, evaluated and diagnosed with 5mm Prox left ureteral stone and discharged home yesterday, presents back to [facility] ER for uncontrolled pain with PO medications. He denies n/v/f/c. VS Stable, visibly uncomfortable on exam today. Friend at bedside with patient. KUB reveals prox-mid left ureteral stone, slight progression from yesterday's exam. slight leukocytosis and elevated creatinine appreciated. See last notes for details. Allergies Allergy/AdvReac Type Severity Reaction Status Date / Time [place] nut Allergy Severe Anaphylaxis Unverified 05/25/19 15:23 macadamia nut oil Allergy Severe Anaphylaxis Unverified 05/25/19 15:23 Home Medications Home Medications Medication Instructions Recorded Confirmed Type ondansetron HCl [Zofran] 4 mg PO Q6H PRN #10 tab 05/24/19 05/25/19 Rx oxycodone 5 mg PO Q6H PRN #10 tab 05/24/19 05/25/19 Rx tamsulosin 0.4 mg PO HS #30 cap 05/24/19 05/25/19 Rx naproxen sodium [Aleve] 440 mg PO Q8H PRN 05/25/19 05/25/19 History Patient History Medical History No pertinent past medical history Surgical History H/O wisdom tooth extraction Family History Father Coronary heart disease Social History Preferred Language: [place] Communication Ability: Effective Java Flex Developer Required: No Beliefs That Will Affect Care: None Current Living Situation: Significant Other current occupational status: unemployed Other Information That Helps Us Care for You: No other: previously worked as computer programer Feels Safe at Home: Yes Safety Concerns: Feels Safe At This Time Smoking Status: Never smoker Do You Dip or Chew Tobacco: No ; Second Hand Exposure: No ; Tobacco Cessation Education Requested by Patient: No Hx Alcohol Use: No Hx Substance Use: No Review of Systems Review of Systems: All systems reviewed & are unremarkable except as noted in HPI & below Physical Exam Constitutional: no acute distress and not ill appearing Eyes: no nystagmus ENMT: Ears: no hearing impairment Neck: trachea midline Respiratory: no respiratory distress and no cough Cardiovascular: Vessels: no JVD Chest (Breasts): Chest: normal inspection of chest Gastrointestinal (Abdomen): Inspection/Auscultation: abdomen not distended and no abdominal edema Percussion/Palpation: abdomen soft; abdomen nontender Musculoskeletal: Head/Neck/Chest: normocephalic and head atraumatic Skin: no rashes, warm and dry Neurologic: awake; not confused and not obtunded Psychiatric: Orientation: alert and oriented x 3 Eye Contact: good eye contact Affect: no depressed affect Genitourinary: + CVA tenderness (left) and bladder normal to inspection Lymphatic: no lymphadenopathy and no lymphedema Results & Data Vital Signs (Past 12 Hours) Vital Signs Temp Pulse Pulse Resp BP BP Pulse Ox 05/25/19 16:15 65 15 136/78 99 05/25/19 14:31 36.7 C 62 16 174/96 H 100 PG Care Time/CCT Total # of Minutes Spent Total Time Spent with Patient: Total time spent is greater than 50% in coordination of care (as documented) at patient's floor/unit and/or counseling patient:
--- NOTE | 2019-05-25 17:16 | Emergency Department Note ---
Entered by Mariusz Cavazos acting as a scribe for Kameron Quiroz MD History of Present Illness General Chief complaint: Kidney Stone Stated complaint: KIDNEY STONE Time Seen by Provider: 05/25/19 14:36 Source: patient History of Present Illness Onset (ago): hour(s) 2 Location: abdomen and left Severity: severe Pain Consistency: + constant Maximum Pain Intensity: 10 Current Pain Intensity: 8 Associated symptoms: + denies other symptoms (back pain, testicular pain, vomiting) and + other (nausea) The patient is a 43 y/o male who presents to the ED w/ CC of constant, severe, left abdominal pain beginning 2 hours ago. The patient states he was evaluated in the ER for similar symptoms two days ago. He reports at that time his discomfort was a 10/10. The patient notes he was admitted to the hospital for a 5mm, left sided kidney stone. He states he was evaluated by Urology and discussed his treatment options. The patient reports this is his first kidney stone, and it was decided to go with outpatient control. He notes he felt fine at discharge yesterday. The patient states his symptoms started to return two hours ago, and he tried taking an Oxy, but it did not help his symptoms. He reports his symptoms do not radiate to his back, and he is extremely nauseous. The patient notes his current discomfort is an 8/10 in severity. He states he has not vomited. The patient reports he tried taking 2 Aleve about [address] his Oxy, and it did not help. He denies testicular pain. EMR reviewed: The patient was evaluated on May 23 and diagnosed with a 5mm, left, proximal, kidney stone with hydronephrosis. Home Medications Home Medications Medication Instructions Recorded Confirmed Type ondansetron HCl [Zofran] 4 mg PO Q6H PRN #10 tab 05/24/19 05/25/19 Rx oxycodone 5 mg PO Q6H PRN #10 tab 05/24/19 05/25/19 Rx tamsulosin 0.4 mg PO HS #30 cap 05/24/19 05/25/19 Rx naproxen sodium [Aleve] 440 mg PO Q8H PRN 05/25/19 05/25/19 History Allergies Allergy/AdvReac Type Severity Reaction Status Date / Time [place] nut Allergy Severe Anaphylaxis Unverified 05/25/19 15:23 macadamia nut oil Allergy Severe Anaphylaxis Unverified 05/25/19 15:23 Past Med/Surg History Medical History No pertinent past medical history Surgical History H/O wisdom tooth extraction Family History Father Coronary heart disease Social History Preferred Language: Lao Communication Ability: Effective Metal Caster Required: No Beliefs That Will Affect Care: None Current Living Situation: Significant Other current occupational status: unemployed Other Information That Helps Us Care for You: No other: previously worked as computer programer Feels Safe at Home: Yes Safety Concerns: Feels Safe At This Time Smoking Status: Never smoker Do You Dip or Chew Tobacco: No ; Second Hand Exposure: No ; Tobacco Cessation Education Requested by Patient: No Hx Alcohol Use: No Hx Substance Use: No Review of Systems See HPI for pertinent positives & negatives. and A total of 10 systems reviewed and were otherwise negative Physical Exam Vital Signs Vital Signs - 24 hr 05/25/19 14:31 Temperature 36.7 C Temperature Source Oral Sepsis Recent Fever Within 48 Hours No Sepsis New/Unexplained Change in Mental Status No Sepsis Action Taken by Nursing No Action Required Pulse Rate 62 Respiratory Rate 16 Blood Pressure 174/96 H Blood Pressure Mean 122 Pulse Oximetry 100 Oxygen Delivery Method Room Air GENERAL: Patient is in moderate distress secondary to pain. Pacing. HEENT: No acute trauma, normocephalic atraumatic, mucous membranes moist, no nasal congestion, no scleral icterus. NECK: No stridor, no adenopathy, no meningismus, trachea is midline. LUNGS: Clear to auscultation bilaterally, no wheeze, no rhonchi, breath sounds equal. HEART: Without murmurs gallops or rubs, regular rate and rhythm. ABDOMEN: Soft, tenderness along the entire left side, bowel sounds positive, no hernias, no peritonitis. BACK: No flank discomfort to percussion. EXTREMITIES: No cyanosis or edema, full range of motion of all the joints w ithout pain or difficulty, no signs for acute trauma. NEUROLOGIC: Oriented x 3, no acute motor or sensory deficits, no focal weakness. SKIN: No rash, no jaundice, no diaphoresis. Course 1436: Past medical records reviewed. The patient was evaluated in room A10. A complete history and physical exam was performed. 1442: I discussed the patient's case with Dr. Dwyer, Urology. He recommends the patient have a hospitalist evaluation because he will not be able to do anything for the patient today. He notes he will evaluate the patient tomorrow. 1513: I discussed the patient's case with PABLO Rodriguez Hospitalist attending Dr. Mckeon. She will evaluate the patient for further management and care. 1520: Upon reevaluation, the patient is resting comfortably. I discussed laboratory and radiographic results with him. He verbalized agreement of the treatment plan. The patient will be evaluated for further management and care. Administered Medications Sodium Chloride (Nss 1000ml) 1,000 mls @ 80 mls/hr IV .[id number] WHITNEY Stop: 06/24/19 18:24 Last Admin: 05/25/19 19:05 Dose: 80 mls/hr Documented by: [id number] Tamsulosin HCl (Flomax) 0.4 mg PO HS WHITNEY Stop: 06/24/19 20:59 Last Admin: 05/25/19 20:50 Dose: 0.4 mg Documented by: [id number] Discontinued Medications Hydromorphone HCl (Dilaudid) 1 mg IV NOW STA Stop: 05/25/19 14:38 Last Admin: 05/25/19 15:02 Dose: 1 mg Documented by: [id number] Sodium Chloride (Nss 1000ml) 1,000 mls @ 999 mls/hr IV .Q1H1M ONE Stop: 05/25/19 15:37 Last Infusion: 05/25/19 16:14 Dose: 0 mls/hr Documented by: [id number] Admin: 05/25/19 15:02 Dose: 999 mls/hr Documented by: [id number] Ketorolac Tromethamine (Toradol) 15 mg IV NOW STA Stop: 05/25/19 14:38 Last Admin: 05/25/19 15:01 Dose: 15 mg Documented by: [id number] Ondansetron HCl (Zofran) 4 mg IV NOW STA Stop: 05/25/19 14:38 Last Admin: 05/25/19 15:01 Dose: 4 mg Documented by: [id number] Sodium Biphosphate/Sodium Phosphate (Fleet Enema) 132 ml TX NOW ONE Stop: 05/25/19 20:01 Last Admin: 05/25/19 20:50 Dose: 132 ml Documented by: [id number] Medical Decision Making Differential Diagnosis Differential diagnosis includes: renal colic, hydronephrosis, failed outpatient treatment, renal failure, electrolyte imbalance, UTI. Medical Records Attestation: I reviewed the patient's medical records. Home Medications Current Medication List: was personally reviewed by me Laboratory Data Attestation: I reviewed the patient's lab results. Result diagrams: 05/25/19 14:44 05/25/19 14:44 Lab Results 05/25/19 05/25/19 Range/Units 14:44 14:44 WBC 12.66 H (4.8-10.8) K/uL RBC 5.16 (4.7-6.1) M/uL Hgb 15.0 (14.0-18.0) g/dL Hct 42.9 (42-52) % MCV 83.1 (80-100) fL MCH 29.1 (25-34) pg MCHC 35.0 (32-36) g/dL RDW Std Deviation 39.2 (36.4-46.3) fL RDW Coeff of Samantha 13.1 (11.5-14.5) % Plt Count 305 (130-400) K/uL MPV 9.3 (7.4-10.4) fL Sodium 140 (136-145) mmol/L Potassium 3.7 (3.5-5.1) mmol/L Chloride 109 H (98-107) mmol/L Carbon Dioxide 23 (21-32) mmol/L Anion Gap 8.0 (3-11) BUN 13 (7-18) mg/dl Creatinine 1.41 H (0.6-1.4) mg/dl Est Cr Clr Drug Dosing 72.6 ml/min Est GFR ( Amer) 69.2 Est GFR (Non-Af Amer) 59.7 BUN/Creatinine Ratio 9.1 L (10-20) Glucose 102 H (70-99) mg/dl Calcium 9.7 (8.5-10.1) mg/dl Imaging Data Radiologist's Impression: Radiology results as stated below per my review and the radiologist's interpretation: XR KUB/Abdomen 1 view CLINICAL HISTORY: 43 years-old Male presenting with stone, left. TECHNIQUE: Single supine view of the abdomen was obtained. COMPARISON: 05/24/[address] from 05/23/2019. FINDINGS: Nonobstructive bowel gas pattern. No gross pneumoperitoneum. Bilateral nephrolithiasis again noted. Redemonstration of the calculus along the course of the proximal left ureter projecting just inferior to the left gordon sverse process of L3, which is stable to minimally progressed since the prior exam. Calcifications in the pelvis may relate to phleboliths and/or prostatic calcifications. Osseous structures normal. Lung bases clear. IMPRESSION: 1. Stable to minimal interval progression of the proximal left ureteral calculus now just inferior to the left transverse process of L3. 2. Bilateral nephrolithiasis. Electronically signed by: Gualberto Artis M.D. 05/25/2019 3:30 PM Blood Pressure Blood Pressure Findings: Elevated blood pressure Blood Pressure Disposition: further management by hospitalist [facility] Narrative There is a mild leukocytosis, this could be consistent with infection or just his pain. No anemia. No significant electrolyte abnormality or kidney failure. Urinalysis showed some blood, no evidence for infection. KUB showed the left- sided ureteral stone, the stone had migrated distally some compared to previous imaging. The patient presents with recurrent left sided abdominal pain. He did not have pain relief with Aleve or the prescribed oxycodone. The patient was given IV saline, he received IV Dilaudid for pain, IV Zofran for nausea. He received IV Toradol. He is feeling improved. I discussed the case with urology. The patient requires hospitalization and possibly a urologic procedure tomorrow. I do think his pain is secondary to renal colic. He is to be n.p.o. after midnight. I did speak with case management, I talked to the patient about his findings, the on-call hospitalist was consulted. Impression & Plan Renal colic, Failure of outpatient treatment, Left sided abdominal pain Discharge Plan Visit Data *Final* Discharge Date/Time: 05/25/19 17:37 Chief Complaint: Kidney Stone Stated Complaint: KIDNEY STONE ED Provider: Kameron Quiroz Discharge Problem: Renal colic, Failure of outpatient treatment, Left sided abdominal pain Patient Disposition: Admitted As Inpatient Discharge Instructions Interventions: ED Discharge Assessment Last Done: 05/25/19 17:37 The henryibe's documentation has been prepared under my direction and personally reviewed by me in its entirety. I confirm that the note above accurately reflects all work, treatment, procedures, and medical decision making performed by me.
[2019-05-25] MEDS ORDERED: HYDROmorphone INJ 1 MG/ML SYRINGE IV PRN (18:25)
[2019-05-25] MEDS ORDERED: MAGNESIUM HYDROXIDE SUSP 30 ML UDC PO PRN (18:25)
[2019-05-25] MEDS ORDERED: ALUMINUM/MAGNESIUM SUSP 30 ML UDC PO PRN (18:25)
[2019-05-25] MEDS ORDERED: ONDANSETRON INJ 2 MG/ML 2 ML VIAL IV PRN (18:25)
[2019-05-25] MEDS ORDERED: SODIUM CHLORIDE 0.9% 1000ML 1,000 ML IV SCH (18:25)
[2019-05-25] MEDS ORDERED: POLYETHYLENE (MIRALAX) 17 GM PACK PO PRN (18:25)
[2019-05-25] MEDS ORDERED: ACETAMINOPHEN 325 MG TAB PO PRN (18:25)
[2019-05-25] MEDS ORDERED: SOD PHOSPHATE/SOD BIPHOSPHATE ENEMA 132 ML BTL PR ONE (20:00)
[2019-05-25] MEDS ORDERED: TAMSULOSIN HCL 0.4 MG CAP PO SCH (21:00)
[2019-05-25 21:07] LABS: Appearance Urine Clear (Clear); Bacteria Urine Automated Negative (Negative); Bilirubin Urine Negative (Negative); Blood Urine 3+ (Negative); Color Urine Yellow; Epithelial Cell Urine Auto 0-5 /lpf (0-5); Glucose Urine UA Negative (Negative); Ketones Urine Negative (Negative); Leukocyte Esterase Urine Negative (Negative); Nitrite Urine Negative (Negative); Protein Urine Negative (Negative); RBC Urine Automated 0-4 /hpf (0-4); Specific Gravity Urine 1.011 (1.000-1.030); Urobilinogen Urine Negative (Negative)
[2019-05-26 06:58] LABS: Basophils # (auto) 0.04 K/uL (0-0.2); Basophils % (auto) 0.4 %; Eosinophils # (auto) 0.44 K/uL (0-0.5); Eosinophils % (auto) 4.8 %; Hemoglobin 13.4 g/dL (14.0-18.0); Immature Granulocytes # (auto) 0.01 K/uL (0.00-0.02); Immature Granulocytes % (auto) 0.1 %; Lymphocytes # (auto) 2.34 K/uL (1.2-3.4); Lymphocytes % (auto) 25.6 %; Mean Corpuscular Hemoglobin 28.2 pg (25-34); Mean Corpuscular Hgb Conc 33.5 g/dL (32-36); Mean Corpuscular Volume 84.2 fL (80-100); Mean Platelet Volume 9.5 fL (7.4-10.4); Monocytes # (auto) 0.94 K/uL (0.11-0.59); Monocytes % (auto) 10.3 %; Neutrophils # (auto) 5.37 K/uL (1.4-6.5); Neutrophils % (auto) 58.8 %; Platelet Count 276 K/uL (130-400); RDW Coefficient of Variation 13.1 % (11.5-14.5); RDW Standard Deviation 39.4 fL (36.4-46.3); Red Blood Count 4.75 M/uL (4.7-6.1); White Blood Count 9.14 K/uL (4.8-10.8)
[2019-05-26 07:28] LABS: BUN Creatinine Ratio 9.5 (10-20); Calcium 8.7 mg/dl (8.5-10.1); Creatinine Clr Calc Pharmacy 72.1 ml/min; Est GFR (African American) 68.6; Est GFR (Non-African American) 59.2; Magnesium 1.8 mg/dl (1.8-2.4); Potassium 3.7 mmol/L (3.5-5.1)
--- NOTE | 2019-05-26 08:10 | Urology Progress Note ---
Date of Service May 26, 2019 Assessment & Plan (1) Renal colic: (2) Failure of outpatient treatment: 43yo M with persistent left prox 5.5mm stone, failed outpatient treatment. VSS, afebrile. KUB this AM - poor left ureteral stone visibility. Dr Medina made aware, will attempt to visualize prior to ESWL as scheduled. Expected clinical course reviewed. Dr. Muir at bedside now to discharge patient and report directly to surgery center for left ESWL if stone visible. Pt agreeable to plan of care. Friend driving patient over. . Subjective Pain tolerated through the night with IV pain control. Slight nausea associated with pain. Straining all urine - no spontaneous passage noted. No fevers overnight, VSS. Going for KUB now. Review of Systems Review of Systems: All systems reviewed & are unremarkable except as noted in HPI & below Physical Exam Constitutional: no acute distress and not ill appearing Eyes: no nystagmus ENMT: Ears: no hearing impairment Neck: trachea midline Respiratory: no respiratory distress and no cough Cardiovascular: Vessels: no JVD Chest (Breasts): Chest: normal inspection of chest Gastrointestinal (Abdomen): Inspection/Auscultation: abdomen not distended and no abdominal edema Percussion/Palpation: abdomen soft; abdomen nontender Musculoskeletal: Head/Neck/Chest: normocephalic and head atraumatic Skin: no rashes, warm and dry Neurologic: awake; not confused and not obtunded Psychiatric: Orientation: alert and oriented x 3 Eye Contact: good eye contact Affect: no depressed affect Genitourinary: + CVA tenderness (left) and bladder normal to inspection Lymphatic: no lymphadenopathy and no lymphedema Results & Data Vital Signs (Past 12 Hours) Vital Signs Temp Pulse Resp BP BP Pulse Ox 05/26/19 07:36 36.5 C 83 16 141/85 H 97 05/25/19 23:52 161/94 H 05/25/19 22:50 36.6 C 56 L 20 155/101 H 98 PG Care Time/CCT Total # of Minutes Spent Total Time Spent with Patient: Total time spent is greater than 50% in coordination of care (as documented) at patient's floor/unit and/or counseling patient:
--- NOTE | 2019-05-26 08:26 | XRay Report ---
KUB CLINICAL HISTORY: Left ureteral stone. FINDINGS: 2 AP supine abdominal radiographs are compared to study dated 05/25/2019 and correlated with abdominal CT dated 05/23/2019. There is a nonobstructed abdominal bowel gas pattern noting moderate c olonic fecal retention. This partially obscures the renal shadows. A millimeter nonobstructing calcul us is again seen projecting over the right kidney. 2 nonobstructing calculi projecting over the left kidney measure up to 8 mm. The left ureteral calculus seen yesterday is no longer clearly identified. A large phlebolith is noted in the right hemipelvis. The bony structures appear intact. A bone islan d is incidentally noted in the left femoral neck. IMPRESSION: 1. The left ureteral calculus is seen yesterday is no longer clearly identified. 2. Bilateral nonobstructing calculi are similar to previous. Electronically signed by: Kameron Hawley M.D. 05/26/2019 8:25 AM
--- NOTE | 2019-05-26 08:27 | Discharge Summary ---
Date of Service May 26, 2019 Admission HPI Per Admitting Provider This is a 43-year-old male who has no significant past medical history who presents to [facility] secondary to continued left lower quadrant pain. Patient recently admitted to [facility] 05/23/2019 and discharged on 05/24/2019 secondary to obstructing 5.5 mm left ureteral nephrolithiasis. He was seen and evaluated by urology and felt spontaneous passage was likely. He is from [facility] and had been passing through on his way to [place] when his pain started. Due to being out of town he wished to be discharged secondary to pain being under control. He was prescribed Flomax 0.4 mg daily along with as needed narcotics. He was feeling well until today when he developed 8/10, sharp stabbing left lower quadrant abdominal pain, improved with movement, worse with rest. He represented back to ED secondary to continued pain requesting readmission. He denies any fever, chills, sweats, lightheadedness, dizziness, chest pain, shortness with, palpitations, cough, emesis, dysuria, increased urgency with urination, hematuria, diarrhea, melena, hematochezia. He has been pushing oral liquids and has been noticed increased urinary frequency but denies other urinary sx. Further complained on nausea on arrival due to pain. In ED patient underwent KUB which revealed stable to interval progression of left ureteral calculus. He was hemodynamically stable and afebrile while in ED. He had mild elevation in his white blood cell count of 12.66k. BUN 13 and creatinine mildly elevated to 1.41, unknown baseline but yesterday at discharge was 1.25. In ED he received 15 mg IV Toradol as well as 1 mg IV Dilaudid with significant improvement in his symptoms. Admission Exam Per Admitting Provider Constitutional: WD/WN, M, sitting in bedside chair and walking about room intermittently, vitals as above, NAD, sitting up in bed, pleasant, conversing easily Head: Normocephalic, Atraumatic Eyes: PERRL, conjunctivae normal, anicteric sclerae ENMT: external ear and nose normal, oropharynx normal Neck: trachea midline, no thyromegaly normal visual inspection Respiratory: normal respiratory effort, lungs clear to auscultation, no wheeze, rales, rhonchi. Normal insp/exp effort, no accessory muscle use Cardiovascular: RRR, no murmur, no edema Vessels: no JVD or carotid bruit Chest: normal inspection of chest Abdomen: normal bowel sounds, soft, nontender, no hepatosplenomegaly Musculoskeletal: no cyanosis or clubbing, extremities motor strength 5/5 Skin: no rashes, warm and dry normal turgor Neurologic: PERRL, EOMI, accommodation nl, no face palsy, no dysarthria CN's II-XI intact bilaterally and moves all extremities Psychiatric: A+Ox3, euthymic affect Lymphatic: no cervical or axillary lymphadenopathy : deferred Principal Diagnosis Left ureteral calculus Hyronephrosis Acute kidney injury Discharge Exam Constitutional: WD/WN, sitting in bedside chair and walking about room intermittently, vitals as above, NAD, sitting up in bed, pleasant, conversing easily Head: Normocephalic, Atraumatic Eyes: PERRL, conjunctivae normal, anicteric sclerae ENMT: external ear and nose normal, oropharynx normal Neck: trachea midline, no thyromegaly normal visual inspection Respiratory: normal respiratory effort, lungs clear to auscultation, no wheeze, rales, rhonchi. Normal insp/exp effort, no accessory muscle use Cardiovascular: RRR, no murmur, no edema Vessels: no JVD or carotid bruit Chest: normal inspection of chest Abdomen: normal bowel sounds, soft, mild TTP to LLQ, no hepatosplenomegaly Musculoskeletal: no cyanosis or clubbing, extremities motor strength 5/5 Skin: no rashes, warm and dry, normal turgor Neurologic: PERRL, EOMI, accommodation nl, no face palsy, no dysarthria CN's II-XI intact bilaterally and moves all extremities Psychiatric: A+Ox3, anxious Discharge Data Allergies Allergy/AdvReac Type Severity Reaction Status Date / Time [place] nut Allergy Severe Anaphylaxis Verified 05/26/19 07:53 macadamia nut oil Allergy Severe Anaphylaxis Verified 05/26/19 07:53 Consultations 05/25/19 15:13 ED Decision to Admit Stat 05/25/19 15:27 Consult Urology Routine Hospital Course (1) Left ureteral calculus: (2) MALKA (acute kidney injury): (3) Hydronephrosis: This is a 43-year-old male who has no significant past medical history who presents to [facility] secondary to continued left lower quadrant pain. Patient recently admitted to [facility] 05/23/2019 and discharged on 05/24/2019 secondary to obstructing 5.5 mm left ureteral nephrolithiasis. Pain persisted and patient returned to ED after failed outpatient treatment and KUB revealed stable to interval progression of left ureteral calculus. Patient had mild elevation in his white blood cell count of 12.66k, BUN of 13 and creatinine mildly elevated to 1.41, unknown baseline but yesterday at discharge was 1.25. Received pain control and IV fluids. Urology consulted with plan for patient to undergo outpatient ESWL in at outpatient surgical center. Patient is afebrile and hemodynamically stable. Pain is controlled. Will be discharged at 8:30am for procedure at surgery center for 9AM. Instructed to follow up with PCP in [place] upon discharge. Total Time Total Time Spent Total Time Spent (In Minutes): 35 Total Time Includes: Examination of the Patient, Discharge Planning, Medication Reconciliation and Communication With Other Providers Discharge Plan Discharge Items Patient Disposition: Home - Self-Care Reason For Visit: L NEPHROLITHIASIS WITH HYDRONEPHROSIS,FAILED OUTPT Discharge Diagnosis: (1) Left ureteral calculus: (2) Hydronephrosis: (3) Renal colic: Activity: Resume your previous activity Activity Comment: As tolerated Non-emergency contact: Primary Care Provider and Urologist Call non-emergency contact if: you have any medication questions, your pain is worsening and your temperature is above 101 Follow-up/Referrals: PCP,NO [Primary Care Provider] - Diet: Regular Addtl Attending Provider Instructions: Discharge today for outpatient procedure at the [facility] Center at 9AM with Urology Follow up with your primary care provider in [place] within 1 week Keep yourself hydrate after the procedure Check BMP in 1 week to monitor kidney function back to baseline Avoid any nephrotoxic agents such as NSAIDs (Motrin, Aleve, Advil, Ibuprofen,..) for now until kidney function back baseline Pain control as per urology after the procedure today if needed Nothing to drink or eat this morning since you are schedule for outpatient procedure with urology at 9AM today Pending Studies at Discharge: No Stand-Alone Forms: My [facility] [employer], Opioid Pain Management, Smoking Cessation Medications and DC Order Prescriptions: Continued tamsulosin 0.4 mg Capsule 0.4 mg PO HS Qty: 30 RF: 0 oxycodone 5 mg Tablet 5 mg PO Q6H PRN (Reason: severe pain) Qty: 10 RF: 0 ondansetron HCl [Zofran] 4 mg tablet 4 mg PO Q6H PRN (Reason: nausea and vomiting) Qty: 10 RF: 0 Discontinued naproxen sodium [Aleve] 220 mg Tablet 440 mg PO Q8H PRN (Reason: Pain) RF: 0 Discharge Orders: Discharge Order (Routine); Ordered 05/26/19 Ordered By: Ramesh Vargas/Other Patient Handouts: Lithotripsy Shock Wave Admission Data Admit Date/Time: 05/25/19 16:08 Attending Provider: Ramesh Muir Admit Provider: Vince Mckeon Primary Care Provider: PCP,NO Other Providers: Eliel Dwyer ; Vince Mckeon Other DC Date/Time DO NOT enter until pt leaves facility: 05/26/19 08:35
== END 2019-05-26 08:35 | disposition home or self-care (01) | DRG 694 ==
LOC: ED 14:27 → SUATTDRO 16:08 → 3N 16:08